=== PATIENT | male | born 1935 | race Caucasian/White ===

== ENCOUNTER 2023-02-16 17:00 | Outpatient (CLI) | payer MEDICARE, BC | END 2023-02-16 17:01 | disposition home or self-care (01) | LOC: SLEEPLAB 17:00 | PROVIDERS: ATTEND Family Medicine | DX: G47.33 Obstructive sleep apnea (adult) (pediatric) (principal); I10 Essential (primary) hypertension; E11.9 Type 2 diabetes mellitus without complications; E66.9 Obesity, unspecified; R06.83 Snoring; R53.83 Other fatigue; Z68.29 Body mass index [BMI] 29.0-29.9, adult | CPT/HCPCS: 95811 ==

== ENCOUNTER 2023-04-28 17:36 | Emergency (ER) | payer MEDICARE, OTHER ==
[2023-04-28 19:07] LABS: #Monocytes 0.9 thou/uL (0.11-0.59); #Neutrophils 5.5 thou/uL (1.40-6.50); %Basophils 0.1 % (0.0-1.0); %Eosinophils 0.3 % (0.0-10.0); %Lymphocytes 13.4 % (21.0-51.0); %Monocytes 11.9 % (0.0-10.0); %Neutrophils 73.9 % (42.0-75.0); Hemoglobin 13.3 g/dL (14.0-18.0); Mean Corpuscular HGB CONC 34.1 g/dL (32.0-36.0); Mean Corpuscular Hemoglobin 32.8 pg (27.0-31.0); Mean Corpuscular Volume 96.3 fl (78.0-98.0); Mean Platelet Volume 9.2 fL (7.4-10.4); Platelet Count 138 10x3/uL (130-400); RBC Distribution Width 13.4 % (11.5-14.5); Red Blood Cell (RBC) Count 4.05 mill/uL (4.70-6.10); White Blood Cell (WBC) Count 7.5 10x3/uL (4.8-10.8)
[2023-04-28 19:12] LABS: Bacteria/HPF None Seen HPF (None Seen); Bilirubin Negative (Negative); Blood, Urine Negative (Negative); CAUTI Indications for Culture Alt mental st,lethar; Clarity Clear (Clear); Glucose, Urine (Dipstick) Normal (Negative); Ketone, Urine Negative (Negative); Leukocyte Negative Leu/uL (Negative); Nitrite Negative (Negative); Protein, Urine (Dipstick) 20 mg/dL (Neg-Trace); RBC/HPF None Seen HPF (0-3); Specific Gravity, Urine 1.021 (1.002-1.036); Squamous Epithelial None Seen HPF (0-3); Urobilinogen Normal mg/dL (Less than 2); WBC/HPF 0-3 HPF (0-3)
[2023-04-28 19:14] LABS: Urine Culture Reflex No No
[2023-04-28 19:56] LABS: SARS-CoV-2 NAA Rapid Test Not Detected (NotDetected)
[2023-04-28 20:20] LABS: ALT (SGPT) 23 U/L (8-55); AST (SGOT) 34 U/L (5-34); Albumin 3.8 g/dL (3.4-4.8); Alkaline Phosphatase 75 U/L (40-110); Anion Gap 15 mmol/L (10-20); BUN (Urea Nitrogen) 40 mg/dL (8.4-25.7); Bilirubin, Total 0.7 mg/dL (0.2-1.2); Calc. Creatinine Clearance 0 mL/min (70-130); Carbon Dioxide 23 mmol/L (23-31); Chloride 100 mmol/L (98-107); Estimated GFR 58; Glucose 130 mg/dL (83-110); Potassium 4.3 mmol/L (3.5-5.1); Protein, Total 6.8 g/dL (5.8-8.1); Sodium 134 mmol/L (136-145); Troponin I 0.018 ng/mL (< 0.028)
== END 2023-04-29 00:11 | disposition home or self-care (01) ==
LOC: ERS 17:36
DX: F03.90 Unspecified dementia, unspecified severity, without behavioral disturbance, psychotic disturbance, mood disturbance, and anxiety (principal); J10.1 Influenza due to other identified influenza virus with other respiratory manifestations; R53.1 Weakness
CPT/HCPCS: 0240U; 51701; 71045; 81001; 84484; 93005; 99285; 36415; 80053; 84443; 85025

== ENCOUNTER 2023-05-17 09:57 | Inpatient (IN) | payer BC, MEDICARE ==
[2023-05-17] MEDS ORDERED: Acetaminophen 500 MG TAB ONE (10:21)
[2023-05-17 10:53] LABS: #Monocytes 0.4 thou/uL (0.11-0.59); #Neutrophils 8.2 thou/uL (1.40-6.50); %Basophils 0.3 % (0.0-1.0); %Lymphocytes 4.4 % (21.0-51.0); %Monocytes 3.9 % (0.0-10.0); %Neutrophils 90.3 % (42.0-75.0); Hematocrit 35.2 % (42.0-52.0); Hemoglobin 11.9 g/dL (14.0-18.0); Mean Corpuscular HGB CONC 33.8 g/dL (32.0-36.0); Mean Corpuscular Hemoglobin 32.3 pg (27.0-31.0); Mean Corpuscular Volume 95.7 fl (78.0-98.0); Mean Platelet Volume 9.4 fL (7.4-10.4); Platelet Count 202 10x3/uL (130-400); RBC Distribution Width 13.2 % (11.5-14.5); Red Blood Cell (RBC) Count 3.68 mill/uL (4.70-6.10); White Blood Cell (WBC) Count 9.1 10x3/uL (4.8-10.8)
[2023-05-17 11:07] LABS: INR-International Normal Ratio 1.1; Prothrombin Time 14.7 sec (12.0-14.7)
[2023-05-17 11:08] LABS: SARS-CoV-2 NAA Rapid Test Not Detected (NotDetected)
[2023-05-17 11:12] LABS: ALT (SGPT) 43 U/L (8-55); AST (SGOT) 36 U/L (5-34); Albumin 3.2 g/dL (3.4-4.8); Alkaline Phosphatase 75 U/L (40-110); Anion Gap 15 mmol/L (10-20); BUN (Urea Nitrogen) 45 mg/dL (8.4-25.7); Calc. Creatinine Clearance 0 mL/min (70-130); Calcium 9.4 mg/dL (7.8-10.44); Carbon Dioxide 24 mmol/L (23-31); Chloride 102 mmol/L (98-107); Estimated GFR 36; Globulin 3.3 g/dL (2.4-3.5); Glucose 276 mg/dL (83-110); Lipase 10 U/L (8-78); Protein, Total 6.5 g/dL (5.8-8.1); Sodium 137 mmol/L (136-145)
[2023-05-17 11:15] LABS: Troponin I 0.071 ng/mL (< 0.028)
[2023-05-17 11:30] LABS: PTT 22.3 sec (22.9-36.1)
[2023-05-17] MEDS ORDERED: Aspirin 300 MG Suppository ONE (12:12)
[2023-05-17] MEDS ORDERED: Acetaminophen 325 MG Suppository ONE (12:12)
[2023-05-17] MEDS ORDERED: Acetaminophen 650 MG Suppository ONE (12:15)
[2023-05-17 12:30] LABS: Bacteria/HPF 2+ HPF (None Seen); Bilirubin Negative (Negative); Blood, Urine 3+ (Negative); CAUTI Indications for Culture Alt mental st,lethar; Clarity Turbid (Clear); Glucose, Urine (Dipstick) Normal (Negative); Ketone, Urine Negative (Negative); Leukocyte 500 Leu/uL (Negative); Nitrite Negative (Negative); Protein, Urine (Dipstick) 50 mg/dL (Neg-Trace); RBC/HPF 21-50 HPF (0-3); Specific Gravity, Urine 1.019 (1.002-1.036); Squamous Epithelial None Seen HPF (0-3); Urobilinogen Normal mg/dL (Less than 2); WBC/HPF Greater than 50 HPF (0-3); pH, Urine 5.5 (5.0-9.0)
[2023-05-17 12:31] LABS: Urine Culture Reflex Yes Yes
[2023-05-17] MEDS ORDERED: Ondansetron PF 4 MG/2 ML Vial IVP PRN (13:03)
[2023-05-17] MEDS ORDERED: Senokot S 8.6-50 MG TAB PO PRN (13:03)
[2023-05-17] MEDS ORDERED: Sodium Chloride 0.9% 100 ML ONE (13:25)
[2023-05-17] MEDS ORDERED: cefTRIAXone (ROCEPHIN) 1 GM VIAL ONE (13:25)
[2023-05-17 14:18] LABS: Lactic Acid 1.8 mmol/L (0.5-2.2)
[2023-05-17 14:27] LABS: Troponin I 0.064 ng/mL (< 0.028)
[2023-05-17] MEDS ORDERED: Ketamine In 0.9 % NaCl 50 MG/5 ML SYRINGE ONE (16:26)
[2023-05-17] MEDS ORDERED: traMADol HCl 50 MG TAB PO PRN (17:59)
[2023-05-17 19:39] LABS: Troponin I 0.048 ng/mL (< 0.028)
[2023-05-17] MEDS: Sodium Chloride 0.9% 1,000 ML IV SCH (20:25)
[2023-05-17] MEDS: Trospium 20 MG TAB PO SCH (20:38)
[2023-05-17] MEDS: Tamsulosin HCl 0.4 MG CAP PO SCH (20:38)
[2023-05-17 21:38] VITALS: BMI 31.6
[2023-05-18] MEDS ORDERED: Enoxaparin 30 MG (0.3 mL) SYRINGE SC SCH (09:00)
[2023-05-18] MEDS: Sodium Chloride 0.9% 1,000 ML IV SCH (09:00)
[2023-05-18] MEDS: Trospium 20 MG TAB PO SCH ×2 (09:01→20:13)
[2023-05-18] MEDS: Memantine 10 MG TAB PO SCH ×2 (09:01→20:14)
[2023-05-18 10:04] LABS: #Monocytes 0.4 thou/uL (0.11-0.59); #Neutrophils 4.9 thou/uL (1.40-6.50); %Basophils 0.2 % (0.0-1.0); %Lymphocytes 10.1 % (21.0-51.0); %Monocytes 5.9 % (0.0-10.0); %Neutrophils 81.5 % (42.0-75.0); Hematocrit 33.5 % (42.0-52.0); Hemoglobin 11.2 g/dL (14.0-18.0); Mean Corpuscular HGB CONC 33.4 g/dL (32.0-36.0); Mean Corpuscular Hemoglobin 31.9 pg (27.0-31.0); Mean Corpuscular Volume 95.4 fl (78.0-98.0); Mean Platelet Volume 9.2 fL (7.4-10.4); Platelet Count 170 10x3/uL (130-400); RBC Distribution Width 13.4 % (11.5-14.5); Red Blood Cell (RBC) Count 3.51 mill/uL (4.70-6.10)
[2023-05-18 10:23] LABS: ALT (SGPT) 44 U/L (8-55); AST (SGOT) 38 U/L (5-34); Albumin 2.8 g/dL (3.4-4.8); Alkaline Phosphatase 64 U/L (40-110); Anion Gap 10 mmol/L (10-20); BUN (Urea Nitrogen) 40 mg/dL (8.4-25.7); Bilirubin, Total 0.8 mg/dL (0.2-1.2); Calc. Creatinine Clearance 74 mL/min (70-130); Calcium 8.2 mg/dL (7.8-10.44); Carbon Dioxide 26 mmol/L (23-31); Chloride 109 mmol/L (98-107); Estimated GFR 67; Globulin 2.5 g/dL (2.4-3.5); Glucose 157 mg/dL (83-110); Potassium 3.9 mmol/L (3.5-5.1); Protein, Total 5.3 g/dL (5.8-8.1); Sodium 141 mmol/L (136-145)
[2023-05-18] MEDS: cefTRIAXone\\ROCEPHIN 2 GM in Sodium Chloride 0.9% 100 ML IVPB SCH (12:25)
[2023-05-18] MEDS ORDERED: Vancomycin 2.5 GM in Sodium Chloride 0.9% 500 ML IVPB SCH (19:30)
[2023-05-18] MEDS: Donepezil HCl 10 MG TAB PO SCH (20:13)
[2023-05-18] MEDS: Tamsulosin HCl 0.4 MG CAP PO SCH (20:13)
[2023-05-18] MEDS: Melatonin 3 MG TAB PO SCH (20:14)
[2023-05-18] MEDS ORDERED: Vancomycin 1 GM in Premix 1 BAG IVPB SCH (21:00)
[2023-05-19] MEDS: Memantine 10 MG TAB PO SCH ×2 (08:05→20:20)
[2023-05-19] MEDS: Trospium 20 MG TAB PO SCH ×2 (08:05→20:20)
[2023-05-19] MEDS: Enoxaparin 40 MG (0.4 mL) SYRINGE SC SCH (08:05)
[2023-05-19] MEDS: cefTRIAXone\\ROCEPHIN 2 GM in Sodium Chloride 0.9% 100 ML IVPB SCH (14:39)
[2023-05-19] MEDS: Vancomycin (BATCH) 1.75 GM in Premix 1 BAG IVPB SCH (19:01)
[2023-05-19] MEDS: Melatonin 3 MG TAB PO SCH (20:20)
[2023-05-19] MEDS: Tamsulosin HCl 0.4 MG CAP PO SCH (20:20)
[2023-05-19] MEDS: Donepezil HCl 10 MG TAB PO SCH (20:20)
[2023-05-20] MEDS: Trospium 20 MG TAB PO SCH ×2 (08:20→20:02)
[2023-05-20] MEDS: Memantine 10 MG TAB PO SCH ×2 (08:20→20:02)
[2023-05-20] MEDS: Enoxaparin 40 MG (0.4 mL) SYRINGE SC SCH (08:20)
[2023-05-20] MEDS: cefTRIAXone\\ROCEPHIN 2 GM in Sodium Chloride 0.9% 100 ML IVPB SCH (13:52)
[2023-05-20 17:40] LABS: Vancomycin, Trough 13.2 ug/mL
[2023-05-20] MEDS: Vancomycin (BATCH) 1.75 GM in Premix 1 BAG IVPB SCH (18:22)
[2023-05-20] MEDS: Acetaminophen 325 MG TAB PO PRN (20:02)
[2023-05-20] MEDS: Donepezil HCl 10 MG TAB PO SCH (20:02)
[2023-05-20] MEDS: Tamsulosin HCl 0.4 MG CAP PO SCH (20:02)
[2023-05-20] MEDS: Melatonin 3 MG TAB PO SCH (20:02)
[2023-05-21 07:23] LABS: #Monocytes 0.6 thou/uL (0.11-0.59); #Neutrophils 5.5 thou/uL (1.40-6.50); %Basophils 0.3 % (0.0-1.0); %Eosinophils 0.1 % (0.0-10.0); %Lymphocytes 16.8 % (21.0-51.0); %Neutrophils 72.2 % (42.0-75.0); Hematocrit 32.3 % (42.0-52.0); Hemoglobin 10.7 g/dL (14.0-18.0); Mean Corpuscular HGB CONC 33.1 g/dL (32.0-36.0); Mean Corpuscular Hemoglobin 31.5 pg (27.0-31.0); Mean Platelet Volume 9.4 fL (7.4-10.4); Platelet Count 206 10x3/uL (130-400); RBC Distribution Width 13.2 % (11.5-14.5); White Blood Cell (WBC) Count 7.6 10x3/uL (4.8-10.8)
[2023-05-21 07:51] LABS: ALT (SGPT) 112 U/L (8-55); AST (SGOT) 96 U/L (5-34); Albumin 2.4 g/dL (3.4-4.8); Alkaline Phosphatase 74 U/L (40-110); Anion Gap 12 mmol/L (10-20); BUN (Urea Nitrogen) 28 mg/dL (8.4-25.7); Bilirubin, Total 0.3 mg/dL (0.2-1.2); Calc. Creatinine Clearance 85 mL/min (70-130); Calcium 8.2 mg/dL (7.8-10.44); Carbon Dioxide 24 mmol/L (23-31); Chloride 105 mmol/L (98-107); Estimated GFR 79; Globulin 2.7 g/dL (2.4-3.5); Glucose 180 mg/dL (83-110); Potassium 3.6 mmol/L (3.5-5.1); Protein, Total 5.1 g/dL (5.8-8.1); Sodium 137 mmol/L (136-145)
[2023-05-21] MEDS: Trospium 20 MG TAB PO SCH ×2 (08:28→20:29)
[2023-05-21] MEDS: Enoxaparin 40 MG (0.4 mL) SYRINGE SC SCH (08:28)
[2023-05-21] MEDS: Memantine 10 MG TAB PO SCH ×2 (08:28→20:30)
[2023-05-21] MEDS: cefTRIAXone\\ROCEPHIN 2 GM in Sodium Chloride 0.9% 100 ML IVPB SCH (13:15)
[2023-05-21 13:36] LABS: Reference Lab Name LABCORP
[2023-05-21] MEDS: Vancomycin (BATCH) 1.75 GM in Premix 1 BAG IVPB SCH (18:48)
[2023-05-21] MEDS: Tamsulosin HCl 0.4 MG CAP PO SCH (20:30)
[2023-05-21] MEDS: Donepezil HCl 10 MG TAB PO SCH (20:30)
[2023-05-21] MEDS: Melatonin 3 MG TAB PO SCH (20:30)
[2023-05-22] MEDS: Enoxaparin 40 MG (0.4 mL) SYRINGE SC SCH (08:43)
[2023-05-22] MEDS: Trospium 20 MG TAB PO SCH ×2 (08:44→20:01)
[2023-05-22] MEDS: Memantine 10 MG TAB PO SCH ×2 (08:44→20:01)
[2023-05-22 10:29] LABS: #Monocytes 0.5 thou/uL (0.11-0.59); #Neutrophils 6.7 thou/uL (1.40-6.50); %Basophils 0.4 % (0.0-1.0); %Lymphocytes 15.7 % (21.0-51.0); %Neutrophils 74.6 % (42.0-75.0); Hematocrit 33.8 % (42.0-52.0); Hemoglobin 11.5 g/dL (14.0-18.0); Mean Corpuscular Volume 94.2 fl (78.0-98.0); Mean Platelet Volume 9.3 fL (7.4-10.4); Platelet Count 240 10x3/uL (130-400); Red Blood Cell (RBC) Count 3.59 mill/uL (4.70-6.10)
[2023-05-22 10:58] LABS: ALT (SGPT) 250 U/L (8-55); AST (SGOT) 186 U/L (5-34); Albumin 2.8 g/dL (3.4-4.8); Alkaline Phosphatase 90 U/L (40-110); Anion Gap 11 mmol/L (10-20); BUN (Urea Nitrogen) 20 mg/dL (8.4-25.7); Bilirubin, Total 0.5 mg/dL (0.2-1.2); Calc. Creatinine Clearance 91 mL/min (70-130); Calcium 8.6 mg/dL (7.8-10.44); Carbon Dioxide 26 mmol/L (23-31); Chloride 104 mmol/L (98-107); Estimated GFR 84; Globulin 2.8 g/dL (2.4-3.5); Glucose 170 mg/dL (83-110); Potassium 3.6 mmol/L (3.5-5.1); Protein, Total 5.6 g/dL (5.8-8.1); Sodium 137 mmol/L (136-145)
[2023-05-22] MEDS: cefTRIAXone\\ROCEPHIN 2 GM in Sodium Chloride 0.9% 100 ML IVPB SCH (14:47)
[2023-05-22 18:50] LABS: Vancomycin, Trough 13.9 ug/mL
[2023-05-22] MEDS: Vancomycin (BATCH) 1.75 GM in Premix 1 BAG IVPB SCH (19:11)
[2023-05-22] MEDS ORDERED: Vancomycin (BATCH) 1.75 GM in Premix 1 BAG IVPB SCH (19:15)
[2023-05-22] MEDS: Donepezil HCl 10 MG TAB PO SCH (20:01)
[2023-05-22] MEDS: Tamsulosin HCl 0.4 MG CAP PO SCH (20:01)
[2023-05-22] MEDS: Melatonin 3 MG TAB PO SCH (20:01)
[2023-05-23 06:20] LABS: #Monocytes 0.6 thou/uL (0.11-0.59); #Neutrophils 6.5 thou/uL (1.40-6.50); %Basophils 0.3 % (0.0-1.0); %Lymphocytes 17.3 % (21.0-51.0); %Neutrophils 71.3 % (42.0-75.0); Hematocrit 32.9 % (42.0-52.0); Hemoglobin 11.1 g/dL (14.0-18.0); Mean Corpuscular HGB CONC 33.7 g/dL (32.0-36.0); Mean Corpuscular Hemoglobin 32.2 pg (27.0-31.0); Mean Corpuscular Volume 95.4 fl (78.0-98.0); Mean Platelet Volume 9.3 fL (7.4-10.4); Platelet Count 240 10x3/uL (130-400); RBC Distribution Width 13.2 % (11.5-14.5); Red Blood Cell (RBC) Count 3.45 mill/uL (4.70-6.10); White Blood Cell (WBC) Count 9.1 10x3/uL (4.8-10.8)
[2023-05-23 06:51] LABS: ALT (SGPT) 245 U/L (8-55); AST (SGOT) 142 U/L (5-34); Albumin 2.6 g/dL (3.4-4.8); Alkaline Phosphatase 96 U/L (40-110); Anion Gap 12 mmol/L (10-20); BUN (Urea Nitrogen) 18 mg/dL (8.4-25.7); Bilirubin, Total 0.5 mg/dL (0.2-1.2); Calc. Creatinine Clearance 97 mL/min (70-130); Calcium 8.6 mg/dL (7.8-10.44); Carbon Dioxide 25 mmol/L (23-31); Chloride 106 mmol/L (98-107); Estimated GFR 86; Globulin 2.7 g/dL (2.4-3.5); Glucose 141 mg/dL (83-110); Potassium 3.7 mmol/L (3.5-5.1); Protein, Total 5.3 g/dL (5.8-8.1); Sodium 139 mmol/L (136-145)
[2023-05-23 07:09] LABS: Hep B Surf Ag Non-Reactive S/CO (NonReactive); Hep C IgG Ab Non-Reactive S/CO (NonReactive); Hep C Index 0.11 S/CO (0-0.79)
[2023-05-23 07:11] LABS: HBCM Index 0.07 S/CO (0-0.79); Hepatitis B Core IgM Abs Non-Reactive S/CO (NonReactive)
[2023-05-23 08:07] LABS: Hep A IgM AB Non-Reactive S/CO (NonReactive); Hep A IgM S/CO 0.13 S/CO (0-0.79)
[2023-05-23] MEDS: Trospium 20 MG TAB PO SCH ×2 (09:13→19:39)
[2023-05-23] MEDS: Enoxaparin 40 MG (0.4 mL) SYRINGE SC SCH (09:14)
[2023-05-23] MEDS: Memantine 10 MG TAB PO SCH ×2 (09:14→19:40)
[2023-05-23] MEDS: cefTRIAXone\\ROCEPHIN 2 GM in Sodium Chloride 0.9% 100 ML IVPB SCH (14:58)
[2023-05-23] MEDS: Vancomycin (BATCH) 1.75 GM in Premix 1 BAG IVPB SCH (19:18)
[2023-05-23] MEDS: Tamsulosin HCl 0.4 MG CAP PO SCH (19:39)
[2023-05-23] MEDS: Melatonin 3 MG TAB PO SCH (19:39)
[2023-05-23] MEDS: Donepezil HCl 10 MG TAB PO SCH (19:40)
[2023-05-24 05:30] LABS: #Monocytes 0.7 thou/uL (0.11-0.59); #Neutrophils 7.1 thou/uL (1.40-6.50); %Basophils 0.3 % (0.0-1.0); %Lymphocytes 15.6 % (21.0-51.0); %Monocytes 7.3 % (0.0-10.0); %Neutrophils 72.8 % (42.0-75.0); Hematocrit 30.8 % (42.0-52.0); Hemoglobin 10.3 g/dL (14.0-18.0); Mean Corpuscular HGB CONC 33.4 g/dL (32.0-36.0); Mean Corpuscular Hemoglobin 32.1 pg (27.0-31.0); Mean Platelet Volume 9.5 fL (7.4-10.4); Platelet Count 246 10x3/uL (130-400); RBC Distribution Width 13.2 % (11.5-14.5); Red Blood Cell (RBC) Count 3.21 mill/uL (4.70-6.10); White Blood Cell (WBC) Count 9.8 10x3/uL (4.8-10.8)
[2023-05-24 06:29] LABS: ALT (SGPT) 202 U/L (8-55); AST (SGOT) 97 U/L (5-34); Albumin 2.5 g/dL (3.4-4.8); Alkaline Phosphatase 89 U/L (40-110); Anion Gap 9 mmol/L (10-20); BUN (Urea Nitrogen) 23 mg/dL (8.4-25.7); Bilirubin, Total 0.3 mg/dL (0.2-1.2); Calc. Creatinine Clearance 85 mL/min (70-130); Calcium 8.3 mg/dL (7.8-10.44); Carbon Dioxide 25 mmol/L (23-31); Chloride 105 mmol/L (98-107); Estimated GFR 80; Globulin 2.4 g/dL (2.4-3.5); Glucose 181 mg/dL (83-110); Potassium 3.9 mmol/L (3.5-5.1); Protein, Total 4.9 g/dL (5.8-8.1); Sodium 135 mmol/L (136-145)
[2023-05-24] MEDS: Memantine 10 MG TAB PO SCH ×2 (08:50→19:58)
[2023-05-24] MEDS: Enoxaparin 40 MG (0.4 mL) SYRINGE SC SCH (08:50)
[2023-05-24] MEDS: Trospium 20 MG TAB PO SCH ×2 (08:50→19:58)
[2023-05-24] MEDS: cefTRIAXone\\ROCEPHIN 2 GM in Sodium Chloride 0.9% 100 ML IVPB SCH (13:48)
[2023-05-24 19:10] LABS: Vancomycin, Trough 15.2 ug/mL
[2023-05-24] MEDS: Melatonin 3 MG TAB PO SCH (19:58)
[2023-05-24] MEDS: Donepezil HCl 10 MG TAB PO SCH (19:58)
[2023-05-24] MEDS: Tamsulosin HCl 0.4 MG CAP PO SCH (19:58)
[2023-05-24] MEDS: Acetaminophen 325 MG TAB PO PRN (19:58)
[2023-05-24] MEDS: Vancomycin (BATCH) 1.75 GM in Premix 1 BAG IVPB SCH (19:59)
[2023-05-24] MEDS: Ketotifen 0.035% Ophth Soln 5 ml Bottle EA EYE SCH (20:58)
[2023-05-25 05:27] LABS: #Basophils 0.1 thou/uL (0.0-0.2); #Monocytes 0.8 thou/uL (0.11-0.59); #Neutrophils 7.4 thou/uL (1.40-6.50); %Basophils 0.8 % (0.0-1.0); %Lymphocytes 16.3 % (21.0-51.0); %Monocytes 7.6 % (0.0-10.0); %Neutrophils 71.4 % (42.0-75.0); Hematocrit 31.6 % (42.0-52.0); Hemoglobin 10.6 g/dL (14.0-18.0); Mean Corpuscular HGB CONC 33.5 g/dL (32.0-36.0); Mean Corpuscular Volume 95.5 fl (78.0-98.0); Mean Platelet Volume 9.2 fL (7.4-10.4); Platelet Count 246 10x3/uL (130-400); RBC Distribution Width 13.3 % (11.5-14.5); Red Blood Cell (RBC) Count 3.31 mill/uL (4.70-6.10); White Blood Cell (WBC) Count 10.4 10x3/uL (4.8-10.8)
[2023-05-25 05:54] LABS: ALT (SGPT) 155 U/L (8-55); AST (SGOT) 60 U/L (5-34); Albumin 2.6 g/dL (3.4-4.8); Alkaline Phosphatase 87 U/L (40-110); Anion Gap 8 mmol/L (10-20); BUN (Urea Nitrogen) 15 mg/dL (8.4-25.7); Bilirubin, Total 0.4 mg/dL (0.2-1.2); Calc. Creatinine Clearance 95 mL/min (70-130); Calcium 8.4 mg/dL (7.8-10.44); Carbon Dioxide 28 mmol/L (23-31); Chloride 107 mmol/L (98-107); Estimated GFR 85; Globulin 2.3 g/dL (2.4-3.5); Glucose 143 mg/dL (83-110); Potassium 3.9 mmol/L (3.5-5.1); Protein, Total 4.9 g/dL (5.8-8.1); Sodium 139 mmol/L (136-145)
[2023-05-25] MEDS: Ketotifen 0.035% Ophth Soln 5 ml Bottle EA EYE SCH ×2 (08:13→19:52)
[2023-05-25] MEDS: Enoxaparin 40 MG (0.4 mL) SYRINGE SC SCH (08:13)
[2023-05-25] MEDS: Trospium 20 MG TAB PO SCH ×2 (08:13→19:52)
[2023-05-25] MEDS: Memantine 10 MG TAB PO SCH ×2 (08:13→19:52)
[2023-05-25 11:39] LABS: ANA Symphony (Qualitative) Negative (Negative); ANA Symphony (Quantitative) 0.2 Ratio (< 0.7 Negative); dsDNA IgG Antibody 0.7 IU/mL (<10 Negative)
[2023-05-25] MEDS: cefTRIAXone\\ROCEPHIN 2 GM in Sodium Chloride 0.9% 100 ML IVPB SCH (13:57)
[2023-05-25] MEDS: Carvedilol 3.125 MG TAB PO SCH (16:56)
[2023-05-25 18:30] LABS: Vancomycin, Trough 15.8 ug/mL
[2023-05-25] MEDS: Vancomycin (BATCH) 1.75 GM in Premix 1 BAG IVPB SCH (19:51)
[2023-05-25] MEDS: Tamsulosin HCl 0.4 MG CAP PO SCH (19:52)
[2023-05-25] MEDS: Donepezil HCl 10 MG TAB PO SCH (19:52)
[2023-05-25] MEDS: Melatonin 3 MG TAB PO SCH (19:52)
[2023-05-26 06:00] LABS: #Basophils 0.1 thou/uL (0.0-0.2); #Monocytes 0.9 thou/uL (0.11-0.59); #Neutrophils 8.1 thou/uL (1.40-6.50); %Basophils 0.5 % (0.0-1.0); %Lymphocytes 15.6 % (21.0-51.0); %Monocytes 8.1 % (0.0-10.0); %Neutrophils 72.1 % (42.0-75.0); Hematocrit 33.5 % (42.0-52.0); Hemoglobin 11.1 g/dL (14.0-18.0); Mean Corpuscular HGB CONC 33.1 g/dL (32.0-36.0); Mean Corpuscular Hemoglobin 31.6 pg (27.0-31.0); Mean Corpuscular Volume 95.4 fl (78.0-98.0); Platelet Count 275 10x3/uL (130-400); RBC Distribution Width 13.7 % (11.5-14.5); Red Blood Cell (RBC) Count 3.51 mill/uL (4.70-6.10); White Blood Cell (WBC) Count 11.2 10x3/uL (4.8-10.8)
[2023-05-26 06:34] LABS: ALT (SGPT) 143 U/L (8-55); AST (SGOT) 48 U/L (5-34); Albumin 2.8 g/dL (3.4-4.8); Alkaline Phosphatase 99 U/L (40-110); Anion Gap 11 mmol/L (10-20); BUN (Urea Nitrogen) 17 mg/dL (8.4-25.7); Bilirubin, Direct 0.2 mg/dL (0.1-0.3); Bilirubin, Total 0.6 mg/dL (0.2-1.2); Calc. Creatinine Clearance 85 mL/min (70-130); Calcium 8.6 mg/dL (7.8-10.44); Carbon Dioxide 26 mmol/L (23-31); Chloride 104 mmol/L (98-107); Estimated GFR 79; Glucose 159 mg/dL (83-110); Potassium 3.9 mmol/L (3.5-5.1); Protein, Total 5.4 g/dL (5.8-8.1); Sodium 137 mmol/L (136-145)
[2023-05-26] MEDS: Carvedilol 3.125 MG TAB PO SCH ×2 (08:09→16:34)
[2023-05-26] MEDS: Memantine 10 MG TAB PO SCH ×2 (08:09→20:44)
[2023-05-26] MEDS: Trospium 20 MG TAB PO SCH ×2 (08:09→20:44)
[2023-05-26] MEDS: Enoxaparin 40 MG (0.4 mL) SYRINGE SC SCH (08:09)
[2023-05-26] MEDS: Ketotifen 0.035% Ophth Soln 5 ml Bottle EA EYE SCH ×2 (08:12→20:44)
[2023-05-26] MEDS: cefTRIAXone\\ROCEPHIN 2 GM in Sodium Chloride 0.9% 100 ML IVPB SCH (14:40)
[2023-05-26] MEDS ORDERED: Vancomycin (BATCH) 1.75 GM in Premix 1 BAG IVPB SCH (20:00)
[2023-05-26] MEDS: Donepezil HCl 10 MG TAB PO SCH (20:44)
[2023-05-26] MEDS: Melatonin 3 MG TAB PO SCH (20:44)
[2023-05-26] MEDS: Tamsulosin HCl 0.4 MG CAP PO SCH (20:44)
[2023-05-27 06:44] LABS: ALT (SGPT) 102 U/L (8-55); AST (SGOT) 30 U/L (5-34); Albumin 2.7 g/dL (3.4-4.8); Alkaline Phosphatase 90 U/L (40-110); Bilirubin, Direct 0.2 mg/dL (0.1-0.3); Bilirubin, Total 0.6 mg/dL (0.2-1.2); Protein, Total 5.3 g/dL (5.8-8.1)
[2023-05-27] MEDS: Trospium 20 MG TAB PO SCH ×2 (08:29→20:33)
[2023-05-27] MEDS: Ketotifen 0.035% Ophth Soln 5 ml Bottle EA EYE SCH ×2 (08:29→20:33)
[2023-05-27] MEDS: Enoxaparin 40 MG (0.4 mL) SYRINGE SC SCH (08:29)
[2023-05-27] MEDS: Memantine 10 MG TAB PO SCH ×2 (08:29→20:33)
[2023-05-27] MEDS: Carvedilol 3.125 MG TAB PO SCH ×2 (08:29→16:31)
[2023-05-27] MEDS ORDERED: cefTRIAXone\\ROCEPHIN 2 GM in Sodium Chloride 0.9% 100 ML IVPB SCH (14:00)
[2023-05-27] MEDS: Tamsulosin HCl 0.4 MG CAP PO SCH (20:33)
[2023-05-27] MEDS: Melatonin 3 MG TAB PO SCH (20:33)
[2023-05-27] MEDS: Donepezil HCl 10 MG TAB PO SCH (20:33)
[2023-05-28] MEDS: Memantine 10 MG TAB PO SCH (08:32)
[2023-05-28] MEDS: Carvedilol 3.125 MG TAB PO SCH (08:32)
[2023-05-28] MEDS: Trospium 20 MG TAB PO SCH (08:32)
[2023-05-28] MEDS: Ketotifen 0.035% Ophth Soln 5 ml Bottle EA EYE SCH (08:33)
[2023-05-28] MEDS: Enoxaparin 40 MG (0.4 mL) SYRINGE SC SCH (08:33)
[2023-05-28 08:36] VITALS: BP 150/75; TEMP 98.2
== END 2023-05-28 14:10 | DRG 853 ==
LOC: ERS 09:57 → T4-B 13:21 → ERS 15:46
PROVIDERS: ADMIT Hospitalist; ATTEND Internal Medicine
PROC: 0T778DZ Dilation of Left Ureter with Intraluminal Device, Via Natural or Artificial Opening Endoscopic (ICD-10-PCS; principal; 2023-05-17)
PROC: 3E03329 Introduction of Other Anti-infective into Peripheral Vein, Percutaneous Approach (ICD-10-PCS; 2023-05-17)
DX: A41.9 Sepsis, unspecified organism (principal); G93.41 Metabolic encephalopathy; N39.0 Urinary tract infection, site not specified; N20.1 Calculus of ureter; N17.9 Acute kidney failure, unspecified; I50.22 Chronic systolic (congestive) heart failure; F03.90 Unspecified dementia, unspecified severity, without behavioral disturbance, psychotic disturbance, mood disturbance, and anxiety; N40.0 Benign prostatic hyperplasia without lower urinary tract symptoms; Z66 Do not resuscitate; R77.8 Other specified abnormalities of plasma proteins; R65.20 Severe sepsis without septic shock; Z79.899 Other long term (current) drug therapy; Z98.890 Other specified postprocedural states; Z87.891 Personal history of nicotine dependence; Z11.52 Encounter for screening for COVID-19
CPT/HCPCS: 36415; 36416; 51702; 70450; 71045; 74176; 74420; 80048; 80053; 80074; 80076; 80202; 81001; 82390; 82565; 83605; 83690; 83735; 84145; 84484; 85025; 85610; 85730; 86015; 86038; 86225; 87040; 87077; 87086; 87149; 87186; 93005; 93306; 96361; 96374; C2617; J0696; J1650; J3370; J3490; J7030; J7050

== ENCOUNTER 2023-07-06 09:38 | Day surgery (SDC) | payer MEDICARE ==
[2023-07-06] MEDS ORDERED: Lidocaine 2% PF 5 ML VIAL ONE (12:37)
[2023-07-06] MEDS ORDERED: PROPOFOL 20 ML ONE (12:37)
[2023-07-06] MEDS ORDERED: LevoFLOXacin D5W 500 mg (100 mL) BAG ONE (12:43)
[2023-07-06] MEDS ORDERED: ePHEDrine Sulfate 50 MG/10 ML VIAL ONE (13:03)
[2023-07-06] MEDS ORDERED: Oxybutynin 5 MG TAB ONE (13:40)
[2023-07-06] MEDS ORDERED: Phenazopyridine HCl 100 MG TAB ONE ×2 (13:40→13:58)
== END 2023-07-06 15:48 ==
LOC: SDC 09:38
PROVIDERS: ATTEND Urology
PROC: 0T778DZ Dilation of Left Ureter with Intraluminal Device, Via Natural or Artificial Opening Endoscopic (ICD-10-PCS; principal; 2023-07-06)
PROC: 0TC78ZZ Extirpation of Matter from Left Ureter, Via Natural or Artificial Opening Endoscopic (ICD-10-PCS; 2023-07-06)
DX: N20.1 Calculus of ureter (principal); Z88.8 Allergy status to other drugs, medicaments and biological substances; Z87.442 Personal history of urinary calculi
CPT/HCPCS: 74420; 82365; 88300; C2617; J1956; J2001; J2704

== ENCOUNTER 2023-08-19 13:25 | Emergency (ER) | payer MEDICARE ==
[2023-08-19 16:01] LABS: #Basophils 0.03 10x3/uL (0.0-0.2); %Basophils 0.3 % (0.0-1.0); %Eosinophils 2.7 % (0.0-10.0); %Lymphocytes 14.6 % (21.0-51.0); %Monocytes 9.1 % (0.0-10.0); %Neutrophils 72.9 % (42.0-75.0); Hematocrit 33.5 % (42.0-52.0); Hemoglobin 11.4 g/dL (14.0-18.0); Mean Corpuscular Hemoglobin 31.4 pg (27.0-31.0); Mean Corpuscular Volume 92.3 fL (78.0-98.0); Mean Platelet Volume 9.1 fL (7.4-10.4); Platelet Count 180 10x3/uL (130-400); RBC Distribution Width 14.4 % (11.5-14.5); Red Blood Cell (RBC) Count 3.63 mill/uL (4.70-6.10)
[2023-08-19 16:12] LABS: Anion Gap 11 mmol/L (10-20); Globulin 3.1 g/dL (2.4-3.5)
[2023-08-19 16:14] LABS: INR-International Normal Ratio 1.2; Prothrombin Time 14.7 sec (12.0-14.7)
[2023-08-19 16:15] LABS: PTT 35.3 sec (22.9-36.1)
[2023-08-19 16:17] LABS: ALT (SGPT) 21 U/L (8-55); AST (SGOT) 18 U/L (5-34); Albumin 2.8 g/dL (3.4-4.8); Alkaline Phosphatase 77 U/L (40-110); BUN (Urea Nitrogen) 27 mg/dL (8.4-25.7); Calc. Creatinine Clearance 0 mL/min (70-130); Calcium 9.1 mg/dL (7.8-10.44); Carbon Dioxide 25 mmol/L (23-31); Chloride 104 mmol/L (98-107); Estimated GFR 84; Glucose 131 mg/dL (83-110); Magnesium 1.7 mg/dL (1.6-2.6); Protein, Total 5.9 g/dL (5.8-8.1); Sodium 136 mmol/L (136-145)
[2023-08-19 16:20] LABS: Troponin I Less than 0.010 ng/mL (< 0.028)
[2023-08-19 18:36] LABS: Bacteria/HPF None Seen HPF (None Seen); Bilirubin Negative (Negative); Blood, Urine Negative (Negative); CAUTI Indications for Culture Pelvic or flank pain; Clarity Clear (Clear); Glucose, Urine (Dipstick) Normal (Negative); Ketone, Urine Negative (Negative); Leukocyte Negative Leu/uL (Negative); Nitrite Negative (Negative); Protein, Urine (Dipstick) 20 mg/dL (Neg-Trace); RBC/HPF 0-3 HPF (0-3); Specific Gravity, Urine 1.026 (1.002-1.036); Squamous Epithelial None Seen HPF (0-3); Urobilinogen Normal mg/dL (Less than 2); WBC/HPF 0-3 HPF (0-3); pH, Urine 6.5 (5.0-9.0)
[2023-08-19 18:39] LABS: Urine Culture Reflex No No
== END 2023-08-19 22:00 | disposition home or self-care (01) ==
LOC: ERS 13:25
DX: R26.2 Difficulty in walking, not elsewhere classified (principal); F03.90 Unspecified dementia, unspecified severity, without behavioral disturbance, psychotic disturbance, mood disturbance, and anxiety; Z79.899 Other long term (current) drug therapy; R00.2 Palpitations
CPT/HCPCS: 36415; 70450; 72131; 80053; 81001; 83735; 83880; 84484; 85025; 85610; 85730; 93005